=== PATIENT | male | born 1960 | race Caucasian/White ===

== ENCOUNTER 2019-01-04 06:15 | Day surgery (SDC) | payer BC ==
[~2019-01-04 06:15] MED LIST: Dextrose 5%-0.45% NaCl 1,000 ML IV SCH; Sodium Chloride 0.9% 10 ML Syringe FLUSH PRN
[2019-01-04] MEDS ORDERED: Midazolam 1 MG/ML 2 ML SDV IV ONE ×7 (06:16→07:57)
[2019-01-04] MEDS ORDERED: fentaNYL 100 MCG/2 ML SDV IV ONE ×4 (06:16→08:05)
[2019-01-04] MEDS ORDERED: Midazolam 1 MG/ML 2 ML SDV ONE (06:34)
[2019-01-04] MEDS ORDERED: fentaNYL 100 MCG/2 ML SDV ONE (06:34)
--- NOTE | 2019-01-04 09:37 | OR ---
DATE: 01/04/2019 PROCEDURES: Total colonoscopy, narrow-band imaging, and multiple cold snare polypectomies. INSTRUMENT USED: PCF-H190 DL Olympus video colonoscope. PREMEDICATIONS: Fentanyl 125 mcg intravenous, Versed 4 mg intravenous. Nasal O2 cannula. The procedure was done under pulse oximetry, BP recording, and monitor tech. INDICATION: The patient with progressive alteration in bowel habits in the past few weeks that is unexplained and not responsive to medical measures. Colonoscopic examination is done for detection of any polypoid lesions and removal. Endoscopic hemostasis therapy if needed. DESCRIPTION OF PROCEDURE: Initial rectal exam was unremarkable. Rigid anoscopy was normal. The colonoscope was passed with ease. Scattered diverticula were noted in the distal left colon along with deformity. In the proximal sigmoid colon, 5-mm sized benign-appearing polyp was noted. NBI views were obtained. Photographs were taken. Cold snare polypectomy was done. The polyp was retrieved and sent for histopathology. The scope was passed with ease up to the ileocecal area. Photographs were taken of the normal-appearing cecum identified by landmarks of appendiceal orifice and double-bulged ileocecal folds. No bleeding was noted from any of the visualized areas at the commencement of the examination. The bowel preparation was found to be adequate, Loco Scale 2. No stricture. No vascular ectasia. No large isolated ulcerations seen. No evidence of diffuse inflammatory bowel disease in the form of friability, contact bleeding, or ulcerations. Probing the proximal sides of folds and flexures, using adequate distention and clearing up the stool material, withdrawal of the scope was made. In the distal sigmoid colon, 3-mm sized polyps, 2 in number, were noted. Cold snare polypectomies were done. The tissues were retrieved and sent for histopathology. No bleeding was noted from any of the visualized areas at the completion of examination. IMPRESSION: 1. Diverticulosis. 2. Multiple colonic polyps. The patient tolerated the procedure well. [facility] /[id number]
[2019-01-04 11:46] VITALS: BP 121/58
== END 2019-01-04 10:34 | disposition home or self-care (01) ==
LOC: DL.ENDO 06:15
PROVIDERS: ATTEND Internal Medicine Gastroenterology
DX: R19.4 Change in bowel habit (principal); D12.5 Benign neoplasm of sigmoid colon; K63.5 Polyp of colon; K57.30 Diverticulosis of large intestine without perforation or abscess without bleeding; E11.9 Type 2 diabetes mellitus without complications; I10 Essential (primary) hypertension; F17.210 Nicotine dependence, cigarettes, uncomplicated; E78.5 Hyperlipidemia, unspecified; I25.10 Atherosclerotic heart disease of native coronary artery without angina pectoris; F32.9 Major depressive disorder, single episode, unspecified; Z79.82 Long term (current) use of aspirin
CPT/HCPCS: J2250; J3010; J7042

== ENCOUNTER 2019-05-03 10:30 | Emergency (ER) | payer BC ==
[2019-05-03 10:40] VITALS: BP 125/77; PULSE 73
[2019-05-03] MEDS ORDERED: Lactated Ringers 1,000 ML IV ONE (10:41)
[2019-05-03] MEDS ORDERED: Ondansetron 4 MG/2 ML SDV IV ONE (11:02)
--- NOTE | 2019-05-03 11:02 | EDM.PDOC ---
ED HPI GENERAL MEDICAL PROBLEM - General Chief Complaint: General Stated Complaint: THROWN UP FOR THE PAST 3 DAYS Time Seen by Provider: 05/03/19 10:57 Source of Information: Reports: Patient History Limitations: Reports: No Limitations - History of Present Illness INITIAL COMMENTS - FREE TEXT/NARRATIVE: This 58 yo male patient reports to the ED due to a 3 day history of diarrhea, nausea and vomiting. The patient reports he has not been able to eat or drink much due to the nausea and vomiting. The patient reports dizziness today when moving. The patient reports he still feels nauseated, but has not vomited yet today. The patient reports he attempted to go to work today, but only worked for about 1 hour before coming here to be seen. The patient reports possible mosquito bites, but no known ticks. The patient was at his daughter's [place] the [place] Onset Date: 04/30/19 Duration: Constant Location: Reports: Generalized Quality: Reports: Other Severity: Moderate Improves with: Reports: None Worsens with: Reports: None Context: Reports: Other Associated Symptoms: Reports: Fever/Chills, Nausea/Vomiting, Weakness ( generalized) - Related Data Allergies Allergy/AdvReac Type Severity Reaction Status Date / Time No Known Allergies Allergy Verified 05/03/19 10:37 Home Meds: Home Meds Carvedilol 3.125 mg PO BID 10/12/16 [History] Glimepiride 4 mg PO BID 10/12/16 [History] Aspirin 81 mg PO DAILY 10/13/16 [History] Tamsulosin [Flomax] 0.4 mg PO BEDTIME 10/13/16 [History] metFORMIN HCl [Metformin HCl] 1,000 mg PO BID 10/13/16 [History] Clopidogrel [Plavix] 75 mg PO DAILY 12/24/16 [History] atorvaSTATin Calcium [Atorvastatin Calcium] 40 mg PO BEDTIME 12/24/16 [History] Lisinopril 5 mg PO DAILY 12/29/18 [History] Sertraline [Zoloft] 75 mg PO DAILY 12/29/18 [History] SitaGLIPtin [Januvia] 50 mg PO DAILY 12/29/18 [History] buPROPion HCl [Wellbutrin Xl] 300 mg PO DAILY 12/29/18 [History] Past Medical History HEENT History: Reports: Hard of Hearing, Impaired Vision Other HEENT History: UPPER FULL DENTURE. LOWER PARTIAL Cardiovascular History: Reports: Bypass, CAD, High Cholesterol, Hypertension, [place] , PTCA, Stents Respiratory History: Reports: None Gastrointestinal History: Reports: None Genitourinary History: Reports: BPH, Prostate Disorder Musculoskeletal History: Reports: Arthritis, Back Pain, Chronic, Fracture, Other (See Below) Other Musculoskeletal History: DDD Neurological History: Reports: Neuropathy, Diabetic Psychiatric History: Reports: Anxiety, Depression Endocrine/Metabolic History: Reports: Diabetes, Type II Hematologic History: Reports: None Immunologic History: Reports: None Oncologic (Cancer) History: Reports: None Dermatologic History: Reports: None - Infectious Disease History Infectious Disease History: Reports: Measles - Past Surgical History HEENT Surgical History: Reports: Adenoidectomy, Tonsillectomy Cardiovascular Surgical History: Reports: Coronary Artery Bypass, Coronary Artery Stent Respiratory Surgical History: Reports: None GI Surgical History: Reports: Appendectomy, Colonoscopy, Hernia Repair/Other Male Surgical History: Reports: Vasectomy Endocrine Surgical History: Reports: None Musculoskeletal Surgical History: Reports: None Social & Family History - Family History Family Medical History: Noncontributory Psychiatric: Reports: Bipolar Oncologic: Reports: Bone, Breast, Lung, Prostate, Other (See Below) Other Oncologic Family History: EAR LOBE - Tobacco Use Smoking Status *Q: Current Every Day Smoker Years of Tobacco use: 25 Packs/Tins Daily: 1 Used Tobacco, but Quit: No Second Hand Smoke Exposure: Yes - Caffeine Use Caffeine Use: Reports: Coffee Caffeine Use Comment: 24 cups daily - Recreational Drug Use Recreational Drug Use: No ED ROS GENERAL - Review of Systems Review Of Systems: ROS reveals no pertinent complaints other than HPI. ED EXAM, GENERAL - Physical Exam Exam: See Below Exam Limited By: No Limitations General Appearance: Alert, WD/WN, Moderate Distress Eye Exam: Bilateral Eye: EOMI, Normal Inspection, PERRL Ears: Normal External Exam, Normal Canal, Hearing Grossly Normal, Normal TMs Nose: Normal Inspection, Normal Mucosa, No Blood Throat/Mouth: Normal Inspection, Normal Lips, Normal Teeth, Normal Gums, Normal Oropharynx, Normal Voice, No Airway Compromise Head: Atraumatic, Normocephalic Neck: Normal Inspection, Supple, Non-Tender, Full Range of Motion Respiratory/Chest: No Respiratory Distress, Lungs Clear, Normal Breath Sounds, No Accessory Muscle Use, Chest Non-Tender Cardiovascular: Normal Peripheral Pulses, Regular Rate, Rhythm, No Edema, No Gallop, No JVD, No Murmur, No Rub GI/Abdominal: Normal Bowel Sounds, Soft, Non-Tender, No Organomegaly, No Distention, No Abnormal Bruit, No Mass (Male) Exam: Deferred Rectal (Males) Exam: Deferred Back Exam: Normal Inspection, Full Range of Motion, NT Extremities: Normal Inspection, Normal Range of Motion, Non-Tender, Normal Capillary Refill, No Pedal Edema Neurological: Alert, Oriented, CN II-XII Intact, Normal Cognition, Normal Gait, Normal Reflexes, No Motor/Sensory Deficits Psychiatric: Normal Affect, Normal Mood Skin Exam: Warm, Dry, Intact, Normal Color, No Rash Lymphatic: No Adenopathy Course - Vital Signs Last Recorded V/S: Last Vital Signs Temp 36.3 C 05/03/19 10:39 Pulse 73 05/03/19 10:39 Resp 18 05/03/19 10:39 BP 125/77 05/03/19 10:39 Pulse Ox 100 05/03/19 10:39 Orthostatic Blood Pressure [ 114/67 Standing] Orthostatic Blood Pressure [ 127/68 Sitting] Orthostatic Blood Pressure [ 117/71 Supine] - Orders/Labs/Meds Orders: Active Orders 24 hr Category Date Time Status [facility] [REF] Urgent Lab 05/03/19 11:48 Ordered Sodium Chloride 0.9% [Normal Saline] 1,000 ml Med 05/03/19 12:58 Ordered IV .BOLUS Medication Orders Sodium Chloride (Normal Saline) 1,000 mls @ 500 mls/hr IV .BOLUS ONE Stop: 05/03/19 14:57 Last Admin: 05/03/19 13:04 Dose: 500 mls/hr Labs: Laboratory Tests 05/03/19 05/03/19 05/03/19 Range/Units 10:45 10:45 10:45 WBC 3.4 L (5.0-10.0) 10^3/uL RBC 5.49 (4.6-6.2) 10^6/uL Hgb 16.5 (14.0-18.0) g/dL Hct 48.5 (40.0-54.0) % MCV 88.3 (80-100) fL MCH 30.1 (27.0-34.0) pg MCHC 34.0 (33.0-35.0) g/dL Plt Count 139 L (150-450) 10^3/uL Neut % (Auto) 76.8 H (42.2-75.2) % Lymph % (Auto) 12.9 L (20.5-50.1) % [place] % (Auto) 10.0 H (2-8) % Eos % (Auto) 0.0 L (1.0-3.0) % Baso % (Auto) 0.3 (0.0-1.0) % Sodium 135 (135-145) mmol/L Potassium 4.5 (3.6-5.0) mmol/L Chloride 102 (101-111) mmol/L Carbon Dioxide 20.0 L (21.0-31.0) mmol/L Anion Gap 17.5 BUN 14 (7-18) mg/dL Creatinine 0.8 (0.6-1.3) mg/dL Est Cr Clr Drug Dosing 117.02 mL/min Estimated GFR (MDRD) > 60 BUN/Creatinine Ratio 17.50 Glucose 205 H (74-105) mg/dL Calcium 8.0 L (8.4-10.2) mg/dl Total Bilirubin 0.8 (0.2-1.0) mg/dL AST 38 (10-42) IU/L ALT 32 (10-60) IU/L Alkaline Phosphatase 57 (42-121) IU/L Total Protein 7.1 (6.7-8.2) g/dl Albumin 4.0 (3.2-5.5) g/dl Globulin 3.1 Albumin/Globulin Ratio 1.29 Amylase 48 (28-100) U/L Lipase 34 (22-51) U/L Meds: Medications Generic Name Dose Route Start Last Admin Trade Name Freq PRN Reason Stop Dose Admin Sodium Chloride 1,000 mls @ 500 mls/hr 05/03/19 12:58 05/03/19 13:04 Normal Saline IV 05/03/19 14:57 500 mls/hr .BOLUS ONE Administration Discontinued Medications Generic Name Dose Route Start Last Admin Trade Name Freq PRN Reason Stop Dose Admin Lactated Ringer's 1,000 mls @ 999 mls/hr 05/03/19 10:41 05/03/19 10:48 Ringers, Lactated IV 05/03/19 11:41 999 mls/hr .BOLUS ONE Administration Sodium Chloride 1,000 mls @ 500 mls/hr 05/03/19 11:16 05/03/19 11:21 Normal Saline IV 05/03/19 13:15 500 mls/hr .BOLUS ONE Administration Ondansetron HCl 4 mg 05/03/19 11:02 05/03/19 11:04 Zofran IV 05/03/19 11:03 4 mg ONETIME ONE Administration Departure - Departure Time of Disposition: 14:11 Disposition: Home, Self-Care 01 Condition: Fair Clinical Impression: Gastroenteritis, Dehydration - Discharge Information *PRESCRIPTION DRUG MONITORING PROGRAM REVIEWED*: Not Applicable *COPY OF PRESCRIPTION DRUG MONITORING REPORT IN PATIENT MARIANO: Not Applicable Instructions: Dehydration, Adult, [id number], Viral Gastroenteritis, Adult, [id number] Forms: ED Department Discharge Care Plan Goals: The patient was advised of the examination and lab results during the visit. The patient was given IV fluids and IV Zofran while in the ED. The patient was discharged with a script for Zofran (4 mg) #20 to take 1 by mouth every 6 hours as needed for nausea. The patient was encouraged to stick to a BRAT diet ( bananas, rice, applesauce and toast) with small frequent sips of fluid. If the patient has any additional symptoms or concerns, the patient should either return to the emergency department or follow-up with her primary care facility. - My Orders Last 24 Hours: My Active Orders 05/03/19 11:48 [facility] [REF] Urgent 05/03/19 12:58 Sodium Chloride 0.9% [Normal Saline] 1,000 ml IV .BOLUS - Assessment/Plan Last 24 Hours: My Active Orders 05/03/19 11:48 [facility] [REF] Urgent 05/03/19 12:58 Sodium Chloride 0.9% [Normal Saline] 1,000 ml IV .BOLUS
[2019-05-03 11:12] LABS: ANION GAP 17.5; CHLORIDE,CL 102 mmol/L (101-111); SODIUM,NA 135 mmol/L (135-145)
[2019-05-03] MEDS ORDERED: Sodium Chloride 0.9% 1,000 ML IV ONE ×2 (11:16→12:58)
== END 2019-05-03 14:20 | disposition home or self-care (01) ==
LOC: DL.ED 10:30
DX: K52.9 Noninfective gastroenteritis and colitis, unspecified (principal); E86.0 Dehydration; I25.10 Atherosclerotic heart disease of native coronary artery without angina pectoris; E78.00 Pure hypercholesterolemia, unspecified; I10 Essential (primary) hypertension; I25.2 Old myocardial infarction; E11.42 Type 2 diabetes mellitus with diabetic polyneuropathy; F41.9 Anxiety disorder, unspecified; F17.210 Nicotine dependence, cigarettes, uncomplicated; Z95.5 Presence of coronary angioplasty implant and graft; Z79.899 Other long term (current) drug therapy
CPT/HCPCS: 36415; 80053; 82150; 83690; 85025; 86788; 87804; 96361; 96374; 99283; J2405; J7030; J7120

== ENCOUNTER 2023-04-07 09:26 | Emergency (ER) | payer BC ==
[2023-04-07] MEDS ORDERED: Iopamidol 755 Mg/ML 100 ML Bottle IVPUSH ONE (09:34)
[2023-04-07] MEDS ORDERED: Sodium Chloride 0.9% 10 ML Syringe FLUSH PRN (09:36)
[2023-04-07 09:47] LABS: BASOPHILS PERCENT AUTO 0.4 % (0.0-1.0); EOSINOPHILS PERCENT AUTO 3.6 % (1.0-3.0); HEMATOCRIT 43.6 % (40.0-54.0); HEMOGLOBIN 14.6 g/dL (14.0-18.0); MEAN CORPUSCULAR HEMOGLOBIN 29.7 pg (27.0-34.0); MEAN CORPUSCULAR HGB CONC 33.5 g/dL (33.0-35.0); MEAN CORPUSCULAR VOLUME 88.8 fL (80-100); PLATELET COUNT,PLT 192 10^3/uL (150-450); RED BLOOD CELL COUNT 4.91 10^6/uL (4.6-6.2); WHITE BLOOD CELL COUNT,WBC 9.8 10^3/uL (5.0-10.0)
[2023-04-07 10:04] LABS: PROTHROMBIN TIME 10.1 SEC (9.0-12.0)
[2023-04-07 10:08] LABS: A/G RATIO 1.03; ALANINE AMINOTRANSFERASE,ALT 49 U/L (16-63); ALBUMIN 3.3 g/dL (3.4-5.0); ALKALINE PHOSPHATASE 89 U/L (46-116); ANION GAP 12.7 mEq/L (7-13); ASPARTATE AMNIOTRANSFERASE,AST 21 U/L (15-37); BILIRUBIN TOTAL 0.6 mg/dL (0.2-1.0); BLOOD UREA NITROGEN,BUN 14 mg/dL (7-18); BUN/CREATININE RATIO 14.9 (No establ ref range); C-REACTIVE PROTEIN < 0.2 mg/dL (0.0-0.9); CALCIUM 8.4 mg/dL (8.5-10.1); CARBON DIOXIDE,CO2 28 mmol/L (21-32); CHLORIDE,CL 106 mmol/L (98-107); CREATININE 0.94 mg/dL (0.70-1.30); ESTIMATED GFR 92 mL/min (>=60); GLUCOSE RANDOM 120 mg/dL (70-99); MAGNESIUM 1.7 mg/dL (1.8-2.4); POTASSIUM,K 4.7 mmol/L (3.5-5.1); PROTEIN TOTAL,TP 6.5 g/dL (6.4-8.2); SODIUM,NA 142 mmol/L (136-145)
[2023-04-07 11:20] VITALS: BP 144/82; PULSE 76
== END 2023-04-07 11:23 | disposition home or self-care (01) ==
LOC: DL.ED 09:26
DX: H53.8 Other visual disturbances (principal); I25.810 Atherosclerosis of coronary artery bypass graft(s) without angina pectoris; I11.0 Hypertensive heart disease with heart failure; I50.9 Heart failure, unspecified; I25.2 Old myocardial infarction; E78.00 Pure hypercholesterolemia, unspecified; M19.90 Unspecified osteoarthritis, unspecified site; E11.40 Type 2 diabetes mellitus with diabetic neuropathy, unspecified; Z79.82 Long term (current) use of aspirin; Z79.02 Long term (current) use of antithrombotics/antiplatelets; Z79.84 Long term (current) use of oral hypoglycemic drugs; Z79.899 Other long term (current) drug therapy
CPT/HCPCS: 36415; 70450; 70496; 80053; 82947; 83735; 85025; 85610; 86140; 93005; 99284; Q9967; 93010

== ENCOUNTER 2023-04-07 13:30 | Emergency (ER) | payer BC ==
[2023-04-07 15:38] VITALS: BP 144/70; PULSE 76
== END 2023-04-07 15:31 ==
LOC: DL.ED 13:30
DX: I63.9 Cerebral infarction, unspecified (principal); I25.10 Atherosclerotic heart disease of native coronary artery without angina pectoris; I11.0 Hypertensive heart disease with heart failure; I50.9 Heart failure, unspecified; E78.00 Pure hypercholesterolemia, unspecified; I25.2 Old myocardial infarction; N40.0 Benign prostatic hyperplasia without lower urinary tract symptoms; E11.40 Type 2 diabetes mellitus with diabetic neuropathy, unspecified; Z79.899 Other long term (current) drug therapy; Z79.82 Long term (current) use of aspirin; Z79.02 Long term (current) use of antithrombotics/antiplatelets; Z79.84 Long term (current) use of oral hypoglycemic drugs
CPT/HCPCS: 99285